=== PATIENT | female | born 1950 | race Two or more races ===

== ENCOUNTER 2019-01-24 11:34 | Outpatient (CLI) | payer OTHER | END 2019-01-24 12:00 | disposition home or self-care (01) | LOC: RAD 11:34 | DX: M54.5 Low back pain (principal); M17.12 Unilateral primary osteoarthritis, left knee ==

== ENCOUNTER 2020-10-21 09:42 | Emergency (ER) | payer OTHER ==
[~2020-10-21] VITALS: Ht 147.3 cm; Wt 49.0 kg
[2020-10-21] MEDS ORDERED: LEVOTHYROXINE25 MCG PO (09:51)
== END 2020-10-21 13:44 | disposition home or self-care (01) ==
LOC: ER 09:42
DX: R42 Dizziness and giddiness (principal)

== ENCOUNTER 2021-02-26 13:28 | Emergency (ER) | payer OTHER ==
[~2021-02-26] VITALS: Ht 147.3 cm; Wt 45.4 kg
[~2021-02-26 13:28] MED LIST: LEVOTHYROXINE25 MCG PO
== END 2021-02-26 16:41 | disposition home or self-care (01) ==
LOC: ER 13:28
DX: K52.89 Other specified noninfective gastroenteritis and colitis (principal)

== ENCOUNTER 2021-06-30 14:01 | Emergency (ER) | payer OTHER ==
[~2021-06-30] VITALS: Ht 147.3 cm; Wt 46.7 kg
[2021-06-30] MEDS ORDERED: FOSAMAX70 MG PO (14:15)
[2021-06-30] MEDS ORDERED: DICLOFENAC SODI75 MG PO (17:03)
== END 2021-06-30 17:36 | disposition home or self-care (01) ==
LOC: ER 14:01
DX: N23 Unspecified renal colic (principal); R10.31 Right lower quadrant pain; M54.9 Dorsalgia, unspecified

== ENCOUNTER 2021-10-20 10:39 | Emergency (ER) | payer OTHER ==
[~2021-10-20] VITALS: Ht 149.9 cm; Wt 46.7 kg
[~2021-10-20 10:39] MED LIST changes: +DICLOFENAC SODI75 MG PO; +FOSAMAX70 MG PO
[2021-10-20] MEDS ORDERED: ZOCOR20 MG (11:17)
[2021-10-20] MEDS ORDERED: DICLOFENAC POTA50 MG PO (13:36)
== END 2021-10-20 13:47 ==
LOC: ER 10:39
DX: S81.851A Open bite, right lower leg, initial encounter (principal); W55.01XA Bitten by cat, initial encounter; Y93.89 Activity, other specified; Y92.89 Other specified places as the place of occurrence of the external cause; I87.2 Venous insufficiency (chronic) (peripheral); M79.604 Pain in right leg

== ENCOUNTER 2021-12-05 11:26 | Outpatient (CLI) | payer OTHER ==
[~2021-12-05 11:26] MED LIST changes: +DICLOFENAC POTA50 MG PO; +ZOCOR20 MG
== END 2021-12-05 11:29 | disposition home or self-care (01) ==
LOC: RAD 11:26
PROVIDERS: ATTEND Podiatrist Foot Surgery
DX: M20.11 Hallux valgus (acquired), right foot (principal); M20.12 Hallux valgus (acquired), left foot

== ENCOUNTER 2023-02-07 06:17 | Day surgery (SDC) | payer OTHER ==
[2023-02-01 09:19] LABS: PH,URINE 7.5 (5.0-8.0); URINE APPEARANCE Clear; URINE BILIRRUBIN Negative (NEGATIVE); URINE BLOOD Trace; URINE COLOR Yellow; URINE GLUCOSE Negative (NEGATIVE); URINE LEUKOCYTE Moderate; URINE NITRATE Negative; URINE PROTEIN Trace (NEGATIVE); URINE UROBILINOGEN 0.2 E.U./dl
[2023-02-01 09:21] LABS: HEMATOCRIT 38.3 % (36.0-45.00); HEMOGLOBIN 13.2 g/dL (12.0-15.00); MEAN CELL VOLUME 88.2 fL (80.00-100.00); MEAN CORPUSCULAR HEMOGLOBIN 30.4 pg (27.00-32.0); MEAN CORPUSCULAR HGB CONC 34.5 g/dl (32.0-36.0); PLATELET COUNT 194 K/uL (150-450); RED BLOOD COUNT 4.35 M/uL (4.00-6.00); RED CELL DISTRIBUTION WIDTH 12.5 % (11.5-14.5)
[2023-02-01 09:23] LABS: URINE BACTERIA 1186.6 uL (0.0-1933); URINE EPITHELIAL CELLS 9.8 uL (0.0-38.8); URINE RBC 44.6 uL (0.0-20.8); URINE WBC 56.1 uL (0.0-23.2)
[2023-02-01 09:55] LABS: ALBUMIN 3.8 gm/dL (3.4-5.0); BILIRUBIN TOTAL 0.58 mg/dL (0.3-1.2); CALCIUM 9.1 mg/dL (8.5-10.1); CREATININE SERUM 0.58 mg/dL (0.55-1.02); GFR 102.77; GLOBULINA 2.9 G/DL (2.4-3.5); POTASSIUM 3.84 mEq/L (3.5-5.1); TOTAL PROTEIN 6.7 gm/dL (6.4-8.2)
[2023-02-01 09:58] LABS: INR 1.09; PARTIAL THROMBOPLASTIN TIME 28.8 SECONDS (22.0-34.0); PROTHROMBIN TIME 11.4 SECONDS (9.0-11.5)
[~2023-02-07] VITALS: Ht 147.3 cm; Wt 48.1 kg
== END 2023-02-07 13:55 | disposition home or self-care (01) ==
LOC: CIR.AMB 06:17
PROVIDERS: ATTEND Surgery Surgery of the Hand
DX: M67.844 Other specified disorders of tendon, left hand (principal); Z20.822 Contact with and (suspected) exposure to COVID-19; E78.5 Hyperlipidemia, unspecified

== ENCOUNTER 2023-06-26 12:20 | Emergency (ER) | payer OTHER ==
[~2023-06-26] VITALS: Ht 149.9 cm; Wt 48.1 kg
[2023-06-26] MEDS ORDERED: ACETAMINOPHEN 500 MG GEL..CAP PO STA (14:35)
[2023-06-26] MEDS ORDERED: MECLIZINE HCL 25 MG TABLET PO ONE (14:45)
[2023-06-26 15:43] LABS: HEMATOCRIT 42.4 % (36.0-45.00); HEMOGLOBIN 14.6 g/dL (12.0-15.00); MEAN CELL VOLUME 88.9 fL (80.00-100.00); MEAN CORPUSCULAR HEMOGLOBIN 30.6 pg (27.00-32.0); MEAN CORPUSCULAR HGB CONC 34.4 g/dl (32.0-36.0); PLATELET COUNT 252 K/uL (150-450); RED BLOOD COUNT 4.78 M/uL (4.00-6.00); RED CELL DISTRIBUTION WIDTH 12.2 % (11.5-14.5)
[2023-06-26 16:12] LABS: ALBUMIN 4.1 gm/dL (3.4-5.0); BILIRUBIN TOTAL 0.4 mg/dL (0.3-1.2); CALCIUM 10.6 mg/dL (8.5-10.1); CREATININE SERUM 0.68 mg/dL (0.55-1.02); GFR 85.29; GLOBULINA 3.4 G/DL (2.4-3.5); POTASSIUM 4.01 mEq/L (3.5-5.1); TOTAL PROTEIN 7.5 gm/dL (6.4-8.2)
[2023-06-26] MEDS ORDERED: CLARITIN10 MG PO (17:26)
[2023-06-26] MEDS ORDERED: DRAMAMINE25 M1 PO (17:26)
== END 2023-06-26 17:49 | disposition home or self-care (01) ==
LOC: ER 12:20
PROVIDERS: General Practice
DX: R42 Dizziness and giddiness (principal); R51.9 Headache, unspecified; E78.00 Pure hypercholesterolemia, unspecified; Z20.822 Contact with and (suspected) exposure to COVID-19

== ENCOUNTER 2025-01-09 00:44 | Emergency (ER) | payer OTHER ==
[~2025-01-09] VITALS: Ht 147.3 cm; Wt 48.5 kg
[~2025-01-09 00:44] MED LIST changes: +CLARITIN10 MG PO; +DRAMAMINE25 M1 PO
[2025-01-09] MEDS ORDERED: ATORVASTATIN CA20 MG PO (01:25)
[2025-01-09] MEDS ORDERED: VAZALORE81 MG PO (01:26)
[2025-01-09] MEDS ORDERED: METOCLOPRAMIDE HCL 5 MG/ML VIAL ONE (01:55)
[2025-01-09] MEDS ORDERED: MECLIZINE HCL 25 MG TABLET PO STA (01:55)
[2025-01-09] MEDS ORDERED: MECLIZINE HCL 25 MG TABLET PO ONE (01:55)
[2025-01-09] MEDS ORDERED: METOCLOPRAMIDE HCL 5 MG/ML VIAL IM STA (01:56)
== END 2025-01-09 04:10 | disposition home or self-care (01) ==
LOC: ER 00:44
DX: H81.10 Benign paroxysmal vertigo, unspecified ear (principal)
CPT/HCPCS: 96372; 99282; J2765